=== PATIENT | male | born 1995 | race Caucasian/White ===

== ENCOUNTER 2024-08-23 09:29 | Emergency (ER) | payer MEDICAID ==
[2024-08-23] MEDS: Tetracaine HCl/PF 0.5% 4 ML Bottle EYERT ONE (11:27)
[2024-08-23] MEDS: Erythromycin Base 0.5% Ophth Oint 1 GM Tube EYEBOTH ONE (11:27)
[2024-08-23] MEDS: Diphtheria,Pertussis(Acell),Tetanus Vaccine 0.5 ML Syringe IM ONE (11:28)
== END 2024-08-23 11:54 | disposition home or self-care (01) ==
LOC: MW.ED 09:29
DX: S01.131A Puncture wound without foreign body of right eyelid and periocular area, initial encounter (principal); Z23 Encounter for immunization; X58.XXXA Exposure to other specified factors, initial encounter
CPT/HCPCS: 90471; 90715; 99283; A9270; J3490